=== PATIENT | female | born 1945 | race Caucasian/White ===

== ENCOUNTER 2016-12-31 00:24 | Emergency (ER) | payer MEDICARE, OTHER ==
[~2016-12-31] VITALS: Ht 165.1 cm; Wt 73.5 kg
[2016-12-31 00:38] VITALS: BP 180/81
[2016-12-31] MEDS ORDERED: MORPHINE SULFATE 2 MG/ML DISP.SYRIN. IV ONE (02:00)
[2016-12-31] MEDS ORDERED: ONDANSETRON PF 4 MG/2 ML VIAL. IV ONE (02:00)
[2016-12-31] MEDS ORDERED: HYDR-971 PO (02:22)
--- NOTE | 2016-12-31 02:22 | PHYS DOC ---
Past Medical History Past Medical History: Diabetes-Type II Past Surgical History: Other Additional Past Surgical Histo: PARTIAL RIGHT HIP, LYPOMAS AND SKIN CA REMOVAL Alcohol Use: Occasionally Drug Use: None Adult General Chief Complaint Chief Complaint: SHOULDER INJURY HPI HPI Patient is a 71 year old female who presents with complaint of right shoulder injury after suffering a fall. Injury took place approximately 1 hour prior to arrival. Patient was backing down steps at her home when she took a misstep 2 steps above the floor and lost her balance. Patient fell onto her right shoulder. Patient rates pain as 10/10. Patient unable to move at right shoulder secondary to pain. Denies loss of sensation or function in right hand. Patient took 2 tylenol tablets prior to arrival with no improvement. Patient also has right arm in simple sling. Denies head injury or loss of consciousness. Patient does not take any blood thinners. Review of Systems Review of Systems Constitutional: Denies fever or chills [] Eyes: Denies change in visual acuity, redness, or eye pain [] HENT: Denies nasal congestion or sore throat [] Respiratory: Denies cough or shortness of breath [] Cardiovascular: Denies chest pain or edema [] GI: Denies abdominal pain, nausea, vomiting, bloody stools or diarrhea [] : Denies dysuria or hematuria [] Musculoskeletal: Right shoulder pain [] Integument: Denies rash or skin lesions [] Neurologic: Denies headache, focal weakness or sensory changes [] Current Medications Current Medications Current Medications Medications (Trade) Dose Ordered Sig/[facility] Start Time Stop Time Status Last Admin Dose Admin Morphine Sulfate 2 mg 1X ONCE 12/31/16 02:00 12/31/16 02:01 DC 12/31/16 03:18 2 MG Ondansetron HCl (Zofran) 4 mg 1X ONCE 12/31/16 02:00 12/31/16 02:01 DC 12/31/16 03:17 4 MG Allergies Allergies Allergies Coded Allergies Type Severity Reaction Last Updated Verified No Known Drug Allergies 12/31/16 No Physical Exam Physical Exam Constitutional: Alert, afebrile, appears in moderate discomfort. [] HENT: Normocephalic, atraumatic, bilateral external ears normal, oropharynx moist, no oral exudates, nose normal. [] Eyes: PERRLA, EOMI, conjunctiva normal, no discharge. [] Neck: Normal range of motion, no tenderness, supple, no stridor. [] Cardiovascular:Heart rate regular rhythm, no murmur [] Lungs & Thorax: Bilateral breath sounds clear to auscultation [] Abdomen: Bowel sounds normal, soft, no tenderness, no masses, no pulsatile masses. [] Skin: Warm, dry, no erythema, no rash. [] Back: No tenderness, no CVA tenderness. [] Extremities: Right arm held adducted and internally rotated, tenderness to palpation over humeral head, ROM not tested secondary to pain, neurovasculary intact distal to injury. [] Neurologic: Alert and oriented X 3, normal motor function, normal sensory function, no focal deficits noted. [] Current Patient Data Vital Signs Vital Signs Date Time Temp Pulse Resp B/P (MAP) Pulse Ox O2 Delivery O2 Flow Rate FiO2 12/31/16 00:38 97.9 84 20 180/81 (114) 93 Room Air 97.9 EKG EKG Not performed[] Radiology/Procedures Radiology/Procedures 3 view right shoulder x-ray interpreted by me: Fracture of the humeral neck, mild displacement[] Course & Med Decision Making Course & Med Decision Making Pertinent Labs and Imaging studies reviewed. (See chart for details) Patient was given Morphine IV for pain. Patient placed in shoulder sling/ immobilizer by ED nurse. My evaluation post application showed normal capillary refill and normal sensation in all 5 digits of right hand. Patient referred to Dr. Bellamy for follow up in 5-7 days. Discharged with prescription for [place]. Recommended return to the emergency department for any worsening symptoms. Patient voiced understanding and in agreeement with treatment plan. Dragon Disclaimer Dragon Disclaimer This electronic medical record was generated, in whole or in part, using a voice recognition dictation system. Departure Departure Impression: Primary Impression: Fracture of neck of humerus Disposition: 01 HOME, SELF-CARE Condition: STABLE Referrals: ELAINE DUKE MD (PCP) MOISE BELLAMY MD Patient Instructions: Shoulder Fracture (Proximal Humerus or Glenoid)-[facility] Additional Instructions: Follow-up with Dr. Bellamy in the next 5-7 days for reevaluation. Return to the emergency department for any worsening symptoms. Scripts Hydrocodone/Apap 5-325 (NORCO 5-325 TABLET) 1 Each Tablet 1-2 TAB PO Q4-6HRS Y for PAIN, #40 TAB Prov: MELL FUNEZ MD 12/31/16 Problem Qualifiers Primary Impression: Fracture of neck of humerus Encounter type: initial encounter Fracture type: closed Laterality: right Qualified Codes: S42.211A - Unspecified displaced fracture of surgical neck of right humerus, initial encounter for closed fracture MELL FUNEZ MD Dec 31, 2016 02:22
--- NOTE | 2016-12-31 07:57 | RAD ---
Examination: 2 views of the right shoulder History: History of right shoulder pain, injury Comparison: None available Findings: There is mild displaced fracture of the humerus neck. The fractured neck of the humerus is slightly anterior and superior in location within the head of the humerus. The evaluation of the head of humerus in relation to glenoid is limited on this examination given positioning. Impression: Displaced fracture of the humerus as described above
== END 2016-12-31 03:21 | disposition home or self-care (01) ==
LOC: ER 00:24
DX: S42.211A Unspecified displaced fracture of surgical neck of right humerus, initial encounter for closed fracture (principal); E11.9 Type 2 diabetes mellitus without complications; W10.8XXA Fall (on) (from) other stairs and steps, initial encounter; Y93.89 Activity, other specified; Y99.8 Other external cause status; Y92.89 Other specified places as the place of occurrence of the external cause
CPT/HCPCS: 29105; 73030; 96374; 96375; 99284; J2270; J2405

== ENCOUNTER → 2021-08-31 | Outpatient (CLI) | payer MEDICARE, OTHER ==
[~2021-08-31] MED LIST: HYDR-3164 PO
--- NOTE | 2021-08-31 14:30 | RAD ---
Right lower extremity venous duplex study 08/31/2021 2:27 PM Clinical History: Reason: RT leg pain and swelling / Spl. Instructions: / History: Technique: Using a combination of real time ultrasound imaging and color-flow and pulse Doppler imagi ng techniques, including spectral analysis, graded compression and augmentation, duplex evaluation of the deep venous system of the right lower extremity was performed. Multiple images were obtained. Findings: There is no sonographic evidence of deep venous thrombosis involving the visualized deep ve nous structures of the right lower extremity Impression: No evidence of deep venous thrombosis involving the right lower extremity Electronically signed by: Leon Pinto MD (08/31/2021 2:27 PM) [id number]
== END ==
LOC: US 13:23
PROVIDERS: ATTEND Family Medicine
DX: M79.604 Pain in right leg (principal); M79.89 Other specified soft tissue disorders
CPT/HCPCS: 93971